=== PATIENT | male | born 1995 | race Two or more races ===

== ENCOUNTER 2019-05-29 12:15 | Emergency (ER) | payer SELFPAY ==
[~2019-05-29] VITALS: Ht 167.6 cm; Wt 90.7 kg
[2019-05-29 12:48] VITALS: BP 127/80
--- NOTE | 2019-05-29 13:28 | PHYS DOC ---
Past Medical History Past Medical History: No Pertinent History Past Surgical History: No Surgical History Alcohol Use: Occasionally Drug Use: None Adult General Chief Complaint Chief Complaint: LACERATION/AVULSION HPI HPI Patient is a 23 year old male who presents to the ED today complaining of left forearm laceration, patient states a carbon paper coating supervisorthread cutter tender cut him. He was seen at an outpatient clinic and had Toradol injection. He states the Toradol injec tion did not help with this pain. He states tetanus is up-to-date. Review of Systems Review of Systems Constitutional: Denies fever or chills [] Musculoskeletal: Denies back pain or joint pain [] Integument: Left forearm laceration Neurologic: Denies headache, focal weakness or sensory changes [] All other systems were reviewed and found to be within normal limits, except as documented in this note. Current Medications Current Medications Current Medications Medications (Trade) Dose Ordered Sig/Rene Start Time Stop Time Status Last Admin Dose Admin Acetaminophen/ Hydrocodone Bitart (Lortab 5/325) 2 tab 1X ONCE 05/29/19 13:30 05/29/19 13:31 DC 05/29/19 13:32 2 TAB Lidocaine HCl (Lidocaine 1% 20ml Vial) 20 ml 1X ONCE 05/29/19 13:30 05/29/19 13:31 DC 05/29/19 13:32 20 ML Allergies Allergies Allergies Coded Allergies Type Severity Reaction Last Updated Verified No Known Drug Allergies 05/29/19 No Physical Exam Physical Exam Constitutional: Well developed, well nourished, no acute distress, non-toxic appearance. [] Skin: Left ventral forearm proximal and just below the before meals joint with a deep laceration approximately 10 x 4 cm. There is no obvious tendon involvement. Patient able to flex and extend the left elbow with no difficulties. Full range of motion to the left fingers. +2 left radial pulse. Adequate radial, medial, ulnar sensation to the left hand. Cap refill less than 2 seconds the left fingers. Back: No tenderness, no CVA tenderness. [] Extremities: No tenderness, no cyanosis, no clubbing, ROM intact, no edema. [] Neurologic: Alert and oriented X 3, normal motor function, normal sensory function, no focal deficits noted. [] Psychologic: Affect normal, judgement normal, mood normal. [] Current Patient Data Vital Signs Vital Signs Date Time Temp Pulse Resp B/P (MAP) Pulse Ox O2 Delivery O2 Flow Rate FiO2 05/29/19 13:32 18 98 Room Air 05/29/19 12:48 98.0 81 127/80 (96) 98.0 EKG EKG [] Radiology/Procedures Radiology/Procedures Laceration/Wound Repair Wound Location: Left forearm laceration Wound's Depth, Shape: Approximately 10 x 4 cm Wound Length (cm): [] Wound Explored: clean Irrigated w/ Saline (ccs): 500 Betadine Prep?: yes Anesthesia: 1% of lidocaine Volume Anesthetic (ccs): 20 Wound Repaired With: 3.0 and 4. 0 Vicryl Inner laceration was repaired with multiple layers and approximately 10 inte rrupted sutures, exterior laceration was repaired with 26 interrupted sutures. Wound was covered with nonstick dressing. Course & Med Decision Making Course & Med Decision Making Pertinent Labs and Imaging studies reviewed. (See chart for details) This is a 23-year-old male patient who presents to the ED today with a left forearm laceration from a carbon paper coating supervisorthread cutter tender. Tetanus is up-to-date. The laceration was closed by me as noted in procedures. Dragon Disclaimer Dragon Disclaimer This electronic medical record was generated, in whole or in part, using a voice recognition dictation system. Departure Departure Impression: Primary Impression: Laceration of left forearm Disposition: 01 HOME, SELF-CARE Condition: STABLE Referrals: NO PCP (PCP) Patient Instructions: Laceration Care, Adult, [id number] Additional Instructions: You have a laceration in the left upper extremity that was closed with dissolvable stitches. Please apply Neosporin to the area twice a day. You can shower and wash the area once or twice a day. Please keep the area clean and dry, monitor it for any signs of infection including but not limited to increased redness, warmth, yellow drainage from the area and return to the ED if they occur or see your doctor. You can take over the counter Tylenol/Motrin for pain Problem Qualifiers Primary Impression: Laceration of left forearm Encounter type: initial encounter Qualified Codes: S51.812A - Laceration without foreign body of left forearm, initial encounter SYED VAN APRN May 29, 2019 13:28
[2019-05-29] MEDS ORDERED: HYDROcodone/APAP 5/325MG 1 TAB TABLET PO ONE (13:30)
[2019-05-29] MEDS ORDERED: LIDOCAINE 1% Multi-Dose 20 ML VIAL. INJ ONE (13:30)
== END 2019-05-29 16:02 | disposition home or self-care (01) ==
LOC: ER 12:15
DX: S51.812A Laceration without foreign body of left forearm, initial encounter (principal); W31.89XA Contact with other specified machinery, initial encounter; Y93.89 Activity, other specified; Y92.89 Other specified places as the place of occurrence of the external cause; Y99.8 Other external cause status
CPT/HCPCS: 12034; 99284